=== PATIENT | male | born 1995 | race Caucasian/White ===

== ENCOUNTER 2022-08-17 13:02 | Emergency (ER) | payer MEDICAID, SELFPAY ==
[2022-08-17 13:10] VITALS: BP 138/71; PULSE 107; RESP 18; TEMP 37.5; O2SAT 98; BMI 20.1
[2022-08-17] MEDS: orphenadrine 30 mg/mL Inj 2 mL 60 MG IM (15:10)
[2022-08-17] MEDS: dexamethasone 10 mg/mL INJ IM (15:10)
[2022-08-17 15:15] VITALS: PULSE 74; RESP 20; O2SAT 97
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
== END 2022-08-17 15:17 | disposition home or self-care (01) ==
PROVIDERS: Emergency Provider Nurse Practitioner Family
DX: S39.012A Strain of muscle, fascia and tendon of lower back, initial encounter (principal); X50.0XXA Overexertion from strenuous movement or load, initial encounter
CPT/HCPCS: 96372; 99284; J1100; J2360

== ENCOUNTER 2022-10-21 19:50 | Emergency (ER) | payer MEDICAID, SELFPAY ==
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
[2022-10-21 20:01] VITALS: BP 131/71; PULSE 103; RESP 16; O2SAT 98
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
--- NOTE | 2022-10-21 20:12 | PC.NURSE ---
Pt placed on bedside greeting card editor
[2022-10-21] MEDS: iohexol 350 mg/mL 500 mL Btl (per mL) IV (20:47)
[2022-10-21 20:56] VITALS: BP 123/72; PULSE 98; RESP 16; TEMP 36.7; O2SAT 98
[2022-10-21 21:02] LABS: Basophils # 0.1 10^3/uL (0.0-0.1); Basophils % 0.5 %; Eosinophils # 0.2 10^3/uL (0.0-0.8); Eosinophils % 0.7 %; Hematocrit 38.6 % (42.0-52.0); Hemoglobin 14.1 g/dL (11.7-16.6); Lymphocytes # 2.6 10^3/uL (0.8-4.8); Lymphocytes % 10.9 %; Mean Corpuscular HGB Conc 36.5 g/dL (30.0-36.0); Mean Corpuscular Volume 90.4 fl (80-94); Mean Platelet Volume 9.6 fL (7.4-10.4); Monocytes # 1.2 10^3/uL (0.2-0.9); Monocytes % 4.9 %; Neutrophils % 82.4 %; Nucleated Red Blood Cells % 0 %; Platelet Count 274 10^3/cmm (130-400); Red Blood Count 4.27 10^6/uL (4.1-5.3); Red Cell Distribution Width 11.8 % (12.1-15.1); White Blood Count 23.7 10^3/uL (4.0-10.0)
[2022-10-21 21:14] LABS: INR 1.05 (0.8-1.2)
--- NOTE | 2022-10-21 21:14 | ECG_ITS ---
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 Measurements Intervals [place] Rate: 91 P: 74 GA: 147 QRS: -36 QRSD: 78 T: 66 QT: 337 QTc: 417 Interpretive Statements SINUS RHYTHM LEFT AXIS DEVIATION [QRS AXIS < -30] POSSIBLE RIGHT VENTRICULAR CONDUCTION DELAY [RSR (QR) IN V1/V2] No previous ECG available for comparison Electronically Signed On 10-22-2022 1:35:18 CDT by Taylor Lopes M.D. [id number]
[2022-10-21] MEDS: tetanus-dipt-pertussis 0.5 mL SDV IM (21:17)
--- NOTE | 2022-10-21 21:27 | PC.NURSE ---
Pt hooked up to continuous bedside cardiac monitoring.
[2022-10-21 21:28] LABS: Albumin Level 4.1 g/dL (3.5-5.2); Alkaline Phosphatase 82 U/L (40-130); Blood Urea Nitrogen 14 mg/dL (6-20); Carbon Dioxide 24 mmol/L (22-29); Chloride 101 mmol/L (98-107); Globulin 2.2 g/dL (1.3-4.6); Glomerular Filtration Rate 101.2 mL/min (90-130); Glucose 127 mg/dL (65-115); Osmolality Calculated 284 mOsm/kg (285-295); Sodium 136 mmol/L (136-145); Total Bilirubin 0.3 mg/dL (0.15-1.2); Total Protein 6.3 g/dL (6.6-8.7)
[2022-10-21 21:29] VITALS: BP 121/71; PULSE 115; O2SAT 96
[2022-10-21] MEDS: ampicillin-sulbactam 3 GM in sodium chloride 0.9% (plus) 50 ML IV (21:46)
[2022-10-21 21:51] LABS: Alanine Aminotransferase < 5 U/L (0-41); Aspartate Amino Transferase 5 U/L (0-40)
[2022-10-21 21:55] LABS: Add Urine Microscopic? NO; Charge for UA Resulting for Rev
[2022-10-21 22:03] LABS: Bilirubin Urine Neg (Negative); Blood Urine Neg (Negative); Glucose Urine UA Norm (Normal); Ketones Urine Negative (Negative); Leukocyte Esterase Urine Negative (Negative); Nitrate Urine Negative (Negative); Protein Urine Neg (Negative); Specific Gravity, Urine 1.015 (1.005-1.030); Sulfosalicylic Acid Urine Negative (Negative); Urine Appearance Clear (CLEAR); Urine Color Light yellow (Yellow); Urobilinogen Urine Norm (Negative); pH Urine 8 (5-7)
[2022-10-21 22:06] LABS: Amphetamines Screen Urine Negative (Negative); Barbiturates Screen Urine Negative (Negative); Benzodiazepines Screen Urine Negative (Negative); Cocaine Screen Urine Negative (Negative); Opiate Screen Urine Negative (Negative); PCP Screen Urine Negative (Negative); THC Screen Urine Negative (Negative)
[2022-10-21 22:30] VITALS: BP 105/73; PULSE 93; RESP 16; O2SAT 98
[2022-10-21 23:00] VITALS: BP 120/80; PULSE 100; RESP 15; O2SAT 99
--- NOTE | 2022-10-21 23:05 | PC.NURSE ---
Cleaned wounds on face, pt tolerated well.
[2022-10-21] MEDS: ketorolac 30 mg/mL INJ IVP (23:28)
[2022-10-21 23:45] VITALS: BP 119/72; PULSE 89; RESP 16; O2SAT 98
--- NOTE | 2022-10-26 14:42 | DCPLANNER ---
assistant account manager called patient due to no primary care physician - no answer at this time.
--- NOTE | 2022-10-29 12:58 | DCPLANNER ---
sound effects manager called patient due to no primary care physician - no answer at this time.
== END 2022-10-21 23:53 | disposition home or self-care (01) ==
PROVIDERS: Emergency Provider Emergency Medicine
DX: S02.40DA Maxillary fracture, left side, initial encounter for closed fracture (principal); S02.2XXA Fracture of nasal bones, initial encounter for closed fracture; S01.511A Laceration without foreign body of lip, initial encounter; M26.34 Vertical displacement of fully erupted tooth or teeth; V44.5XXA Car driver injured in collision with heavy transport vehicle or bus in traffic accident, initial encounter; Z23 Encounter for immunization
CPT/HCPCS: 36415; 70450; 70486; 71045; 71260; 72125; 72170; 73562; 74177; 80053; 80306; 81003; 85025; 85610; 86850; 86900; 90471; 90715; 93005; 96365; 96375; 99291; J0295; J1885; Q9967

== ENCOUNTER 2022-10-27 12:32 | Emergency (ER) | payer MEDICAID, SELFPAY ==
[2022-10-27 12:45] VITALS: BP 101/63; PULSE 111; RESP 18; TEMP 36.7; O2SAT 99
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
[2022-10-27 14:33] VITALS: BP 109/69; PULSE 78; O2SAT 98
== END 2022-10-27 14:35 | disposition home or self-care (01) ==
PROVIDERS: Emergency Provider Physician Assistant
DX: S02.2XXA Fracture of nasal bones, initial encounter for closed fracture (principal); S02.401A Maxillary fracture, unspecified side, initial encounter for closed fracture; V89.2XXA Person injured in unspecified motor-vehicle accident, traffic, initial encounter
CPT/HCPCS: 99283

== ENCOUNTER 2022-12-14 12:16 | Outpatient (CLI) | payer MEDICAID, SELFPAY ==
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
== END 2022-12-14 12:17 | disposition home or self-care (01) ==
LOC: RAD 12:25
PROVIDERS: PCP Family Medicine; Visit Provider Family Medicine
DX: M54.2 Cervicalgia (principal); M79.671 Pain in right foot; M54.50 Low back pain, unspecified; V29.49 Motorcycle driver injured in collision with other motor vehicles in traffic accident
CPT/HCPCS: 72040; 72100; 73630

== ENCOUNTER 2024-04-29 16:47 | Emergency (ER) | payer MEDICAID, SELFPAY ==
--- NOTE | 2024-04-29 16:49 | ECG_ITS ---
[facility] 2024[facility]29 Pat Name: Moses Velazquez Department: Room: Gender: Male Glass Maker: : 1995 Requested By: Amarjit Camarillo Order Number: [id number] Cristian MD: Taylor Lopes M.D. Measurements Intervals [place] Rate: 104 P: 68 ND: 127 QRS: 9 QRSD: 76 T: 66 QT: 318 QTc: 420 Interpretive Statements SINUS TACHYCARDIA POSSIBLE RIGHT VENTRICULAR CONDUCTION DELAY [RSR (QR) IN V1/V2] ABNORMAL RHYTHM ECG Compared to ECG 10/21/2022 21:14:52 Sinus rhythm no longer present Left-axis deviation no longer present Electronically Signed On 04-30-2024 00:13:11 CDT by Taylor Lopes M.D. [email or web address]
[2024-04-29 16:53] VITALS: BP 107/70; PULSE 110; RESP 18; TEMP 36.7; O2SAT 97
--- NOTE | 2024-04-29 17:08 | ED.C_ITS ---
HPI - Psych 2 General: Chief Complaint: Psychiatric Symptoms Stated Complaint: sucidal thoughts Time Seen by Provider: 04/29/24 16:49 Source: patient Mode of arrival: ambulatory Limitations: no limitations History of Present Illness: 28-year-old male who states he has been having severe depression especially over the last month he states that he had got a gun a month ago and was going to kill himself but his dad took his gun away states he still been having increased suicidal thoughts with multiple plans he denies any history of admissions in the past he is not on any medications at this time. Denies any worse improved factors. Related Data Previous Rx's Medication Instructions Recorded hydrocodone 5 mg-acetaminophen 325 1 - 2 tab PO Q4H PRN pain #20 tabs 10/27/22 mg tablet ibuprofen 600 mg tablet 600 mg PO TID PRN pain #30 tabs 10/27/22 Allergies Allergy/AdvReac Type Severity Reaction Status Date / Time No Known Allergies Allergy Verified 10/27/22 12:48 Physical Exam 2 Const: COMMON NORMALS: no acute distress, patient oriented x3 and healthy appearing HENMT: COMMON NORMALS: normocephalic and atraumatic HEAD & SCALP: n ormocephalic and atraumatic Neck/C-Spine: COMMON NORMALS: full ROM and supple Chest: COMMONS NORMALS: normal inspection of the chest Cardio: COMMON NORMALS: regular rate RATE: regular rate Extremity: COMMON NORMALS: normal to inspection and full ROM Neuro: COMMON NORMALS: patient oriented x3, moves all extremities and no focal motor deficits Psych: COMMON NORMALS: mental status grossly normal and cooperative THOUGHT CONTENT: Yes Suicidality present Skin: COMMON NORMALS: no rashes or lesions noted and no wounds GENERAL SKIN EXAM: no rashes or lesions noted Course 2 Vital Signs: Vital signs: Vital Signs Temperature 98.1 F 04/29/24 16:53 Pulse Rate 70 04/30/24 08:00 Respiratory Rate 14 04/30/24 02:12 Blood Pressure 120/72 04/30/24 08:00 Pulse Oximetry 98 04/30/24 08:00 Oxygen Delivery Me thod Room Air 04/30/24 07:54 MDM - Psych Medical Decision Making Patient presents here with suicidal ideation patient is medically cleared is excepted at [facility] will transfer there for bed availability Medical Records I reviewed the patient's medical records. Lab Data I reviewed the patient's lab results. 04/29/24 17:15 04/29/24 17:15 Laboratory Results WBC 8.63 10^3/uL (3.29-11.43) 04/29/24 17:15 RBC 5.03 10^6/uL (3.85-5.65) 04/29/24 17:15 Hgb 16.00 g/dL (11.27-16.99) 04/29/24 17:15 Hct 43.8 % (37-53) 04/29/24 17:15 MCV 87.1 fl (82-101) 04/29/24 17:15 MCH 31.8 pg (27-33) 04/29/24 17:15 MCHC 36.5 g/dL (30-55) 04/29/24 17:15 RDW 11.4 % (12.1-15.1) L 04/29/24 17:15 Plt Count 269 10^3/cmm (157-399) 04/29/24 17:15 MPV 9.9 fL (7.4-10.4) 04/29/24 17:15 Neut % (Auto) 74.1 % 04/29/24 17:15 Lymph % (Auto) 19.7 % 04/29/24 17:15 Marshall % (Auto) 4.5 % 04/29/24 17:15 Eos % (Auto) 0.6 % 04/29/24 17:15 Baso % (Auto) 0.9 % 04/29/24 17:15 Neut # (Auto) 6.39 10^3/uL (1.8-7.7) 04/29/24 17:15 Lymph # (Auto) 1.7 10^3/uL (0.8-4.8) 04/29/24 17:15 Marshall # (Auto) 0.4 10^3/uL (0.2-0.9) 04/29/24 17:15 Eos # (Auto) 0.1 10^3/uL (0.0-0.8) 04/29/24 17:15 Baso # (Auto) 0.1 10^3/uL (0.0-0.1) 04/29/24 17:15 Nucleated RBC % (auto) 0 % 04/29/24 17:15 Nucleated RBCs # 0.0 /100WBC 04/29/24 17:15 Sodium 134 mmol/L (136-145) L 04/29/24 17:15 Potassium 4.0 mmol/L (3.5-5.1) 04/29/24 17:15 Chloride 98 mmol/L (98-107) 04/29/24 17:15 Carbon Dioxide 26 mmol/L (22-29) 04/29/24 17:15 Anion Gap 14.0 (5-19) 04/29/24 17:15 BUN 10 mg/dL (6-20) 04/29/24 17:15 Creatinine 1.0 mg/dL (0.7-1.2) 04/29/24 17:15 GFR Calculation 88.3 mL/min (90-130) L 04/29/24 17:15 Glucose 94 mg/dL (65-115) 04/29/24 17:15 Calculated Osmolality 277 mOsm/kg (285-295) L 04/29/24 17:15 Calcium 9.2 mg/dL (8.5-10.5) 04/29/24 17:15 Total Bilirubin 0.6 mg/dL (0.15-1.2) 04/29/24 17:15 AST 15 U/L (0-40) 04/29/24 17:15 ALT 14 U/L (0-41) 04/29/24 17:15 Alkaline Phosphatase 66 U/L (40-130) 04/29/24 17:15 Total Protein 7.4 g/dL (6.6-8.7) 04/29/24 17:15 Albumin 4.7 g/dL (3.5-5.2) 04/29/24 17:15 Globulin 2.7 g/dL (1.3-4.6) 04/29/24 17:15 TSH 0.31 uIU/mL (0.27-4.20) 04/29/24 17:15 Salicylates < 0.3 mg/dL (3-10) L 04/29/24 17:15 Urine Opiates Screen Negative ng/mL (Negative) 04/29/24 17:53 Acetaminophen < 5.0 ug/mL (10-30) L 04/29/24 17:15 Ur Barbiturates Screen Negative ng/mL (Negative) 04/29/24 17:53 Ur Phencyclidine Scrn Negative ng/mL (Negative) 04/29/24 17:53 Ur Amphetamines Screen Negative ng/mL (Negative) 04/29/24 17:53 U Benzodiazepines Scrn Negative ng/mL (Negative) 04/29/24 17:53 Urine Cocaine Screen Negative ng/mL (Negative) 04/29/24 17:53 U Marijuana (THC) Screen Negative ng/mL (Negative) 04/29/24 17:53 Ethyl Alcohol < 10 mg/dL (0-10) 04/29/24 17:15 Coronavirus (PCR) Negative (Negative) 04/29/24 17:25 Influenza A (PCR) Negative (Negative) 04/29/24 17:25 Influenza Type B (PCR) Negative (Negative) 04/29/24 17:25 RSV (PCR) Negative (Negative) 04/29/24 17:25 No radiology studies performed this visit Discharge Plan Discharge Patient Disposition: Xfer Psychiatric Hosp Clinical Impression: Suicidal ideation Condition: Stable Referrals: Art Saavedra MD [Primary Care Provider] - Coding Level of Care Code ED Yarn Polishing Machine Operator for Odin Mendoza
[2024-04-29 17:21] LABS: Basophils # 0.1 10^3/uL (0.0-0.1); Basophils % 0.9 %; Eosinophils # 0.1 10^3/uL (0.0-0.8); Eosinophils % 0.6 %; Hematocrit 43.8 % (37-53); Lymphocytes # 1.7 10^3/uL (0.8-4.8); Lymphocytes % 19.7 %; Mean Corpuscular HGB Conc 36.5 g/dL (30-55); Mean Corpuscular Hemoglobin 31.8 pg (27-33); Mean Corpuscular Volume 87.1 fl (82-101); Mean Platelet Volume 9.9 fL (7.4-10.4); Monocytes # 0.4 10^3/uL (0.2-0.9); Monocytes % 4.5 %; Neutrophils # 6.39 10^3/uL (1.8-7.7); Neutrophils % 74.1 %; Nucleated Red Blood Cells % 0 %; Platelet Count 269 10^3/cmm (157-399); Red Blood Count 5.03 10^6/uL (3.85-5.65); Red Cell Distribution Width 11.4 % (12.1-15.1); White Blood Count 8.63 10^3/uL (3.29-11.43)
[2024-04-29] MEDS: LORazepam 2 mg Tablet PO (17:28)
[2024-04-29 17:55] LABS: Alanine Aminotransferase 14 U/L (0-41); Albumin Level 4.7 g/dL (3.5-5.2); Alkaline Phosphatase 66 U/L (40-130); Aspartate Amino Transferase 15 U/L (0-40); Blood Urea Nitrogen 10 mg/dL (6-20); Calcium 9.2 mg/dL (8.5-10.5); Carbon Dioxide 26 mmol/L (22-29); Chloride 98 mmol/L (98-107); Creatinine Clr Calc Pharmacy 76.2231; Globulin 2.7 g/dL (1.3-4.6); Glomerular Filtration Rate 88.3 mL/min (90-130); Glucose 94 mg/dL (65-115); Osmolality Calculated 277 mOsm/kg (285-295); Sodium 134 mmol/L (136-145); Thyroid Stimulating Hormone 0.31 uIU/mL (0.27-4.20); Total Bilirubin 0.6 mg/dL (0.15-1.2); Total Protein 7.4 g/dL (6.6-8.7)
[2024-04-29 17:56] LABS: Acetaminophen < 5.0 ug/mL (10-30); Alcohol Level < 10 mg/dL (0-10); Salicylate < 0.3 mg/dL (3-10)
[2024-04-29 18:07] LABS: Covid PCR NEGATIVE (Negative); Influenza A NEGATIVE (Negative); Influenza B NEGATIVE (Negative); Respiratory Syncytial Virus Ce NEGATIVE (Negative)
[2024-04-29 18:28] LABS: Amphetamines Screen Urine Negative (Negative); Barbiturates Screen Urine Negative (Negative); Benzodiazepines Screen Urine Negative (Negative); Cocaine Screen Urine Negative (Negative); Opiate Screen Urine Negative (Negative); PCP Screen Urine Negative (Negative); THC Screen Urine Negative (Negative)
--- NOTE | 2024-04-29 19:17 | PC.NURSE ---
96 hr rights reviewed with patient @[phone] with assistance of [facility] senior information security architect Atul. All education reviewed. No verbalized questions at this time Patient copy left @bedside with patient. Drink and pudding provided to patient.
[2024-04-29 22:08] VITALS: BP 116/67; PULSE 75; RESP 16; O2SAT 98
[2024-04-30 02:12] VITALS: BP 105/68; PULSE 87; RESP 14; O2SAT 98
[2024-04-30 07:54] VITALS: BP 120/72; PULSE 70; O2SAT 98
[2024-04-30 08:00] VITALS: BP 120/72; PULSE 70; O2SAT 98
== END 2024-04-30 08:00 ==
PROVIDERS: Emergency Provider Emergency Medicine; PCP Family Medicine
DX: R45.851 Suicidal ideations (principal); F32.A Depression, unspecified
CPT/HCPCS: 0241U; 36415; 80053; 80306; 80307; 84443; 85025; 93005; 99285

== ENCOUNTER 2024-11-06 23:16 | Emergency (ER) | payer MEDICAID, SELFPAY ==
[2024-11-06 23:19] VITALS: BP 132/78; PULSE 82; RESP 14; TEMP 36.8; O2SAT 96
--- NOTE | 2024-11-07 03:29 | W.ED.BACK ---
HPI - Back Pain/Injury General: Chief Complaint: Back Pain/Injury Stated Complaint: low back pain cause fall Time Seen by Provider: 11/07/24 03:23 History of Present Illness: Patient presents the emergency department with complaint of left lower back pain. No known injury. No trauma. Denies any saddle paresthesias. Denies any radicular pain. Denies any bowel or bladder changes. Denies any fever. Denies any history of IV drug use. Related Data Previous Rx's ?Medication ?Instructions ?Recorded hydrocodone 5 mg-acetaminophen 325 1 - 2 tab PO Q4H PRN pain #20 tabs 10/27/22 mg tablet ibuprofen 600 mg tablet 600 mg PO TID PRN pain #30 tabs 10/27/22 hydrocodone 5 mg-acetaminophen 325 1 tab PO Q6H #20 tabs 11/07/24 mg tablet prednisone 20 mg tablet 20 mg PO BID 5 days #10 tabs 11/07/24 Allergies Allergy/AdvReac Type Severity Reaction Status Date / Time No Known Allergies Allergy Verified 11/06/24 23:23 [facility] PFSH: Medical History (Updated 11/07/24 @ 03:30 by Eliud Michael MD) Psychiatric care Physical Exam Neck/C-Spine: COMMON NORMALS: no JVD Resp: COMMON NORMALS: normal respiratory effort, No retractions, No use of accessory muscles, clear to auscultation bilaterally and percussion normal AUSCULTATION: clear to auscultation bilaterally PERCUSSION: percussion normal Cardio: COMMON NORMALS: no JVD, regular rate, regular rhythm, S1 normal heart sound present, S2 normal heart sound present, No gallops present (Cardio), No clicks present (Cardio), No murmurs present (Cardio), No rub (Cardio) and Peripheral pulses 2+ throughout RATE: regular rate RHYTHM: regular rhythm HEART SOUNDS: S1 normal heart sound present and S2 normal heart sound present PERIPHERAL PULSES: Peripheral pulses 2+ throughout Back/Pelvis: SACROILIAC JOINTS: Yes SI joint(s) abnormal SI joint details: tender to palpation OTHER: Patient with pinpoint tenderness to the left SI joint. No pain over the midline of the spine. No redness or swelling or skin changes. Course Vital Signs: Vital signs: Vital Signs Temperature 98.2 F 11/06/24 23:19 Pulse Rate 82 11/06/24 23:19 Respiratory Rate 14 11/06/24 23:19 Blood Pressure 132/78 11/06/24 23:19 Pulse Oximetry 96 11/06/24 23:19 Oxygen Delivery Me thod Room Air 11/06/24 23:19 MDM - Back Pain/Injury Medical Decision Making Patient with pinpoint tenderness to the left SI joint. Pain with movement and palpation. Patient with no indication of cauda equina. Has no radicular pain. Has no saddle paresthesias has no bowel or bladder changes. Has no midline tenderness. Patient has no fever. No risk factors or concerns at this time for infection such as epidural abscess. Patient's pain seems consistent with SI joint dysfunction. Patient given [place] and Toradol and prednisone will discharge home with [place] and prednisone. No radiology studies performed this visit Discharge Plan Discharge Patient Disposition: Home Clinical Impression: SI (sacroiliac) joint dysfunction Condition: Stable Prescriptions: New hydrocodone-acetaminophen 5-325 mg tablet 1 tab PO Q6H Qty: 20 0RF prednisone 20 mg tablet 20 mg PO BID 5 Days Qty: 10 0RF No Action hydrocodone-acetaminophen 5-325 mg tablet 1 - 2 tab PO Q4H PRN (Reason: pain) Qty: 20 0RF ibuprofen 600 mg tablet 600 mg PO TID PRN (Reason: pain) Qty: 30 0RF Discharge Orders: Discharge ED (Routine); Ordered 11/07/24 Ordered By: Eliud Michael Referrals: Art Saavedra MD [Primary Care Provider, [facility]] Discharge Diet: Advance as tolerated Discharge Activity: Increase activity as tolerated Patient Instructions: Opioid Safety, Pain Management Print Language: [place] Coding Level of Care Code ED Lead Systems Analyst for Odin Mendoza
[2024-11-07] MEDS: HYDROcodone-acetaminophen 5-325 mg Tablet 1 TAB PO (03:38)
[2024-11-07] MEDS: predniSONE 20 mg Tablet 40 MG PO (03:38)
[2024-11-07] MEDS: ketorolac 30 mg/mL INJ IM (03:40)
[2024-11-07 03:44] VITALS: PULSE 82; O2SAT 98
[2024-11-07 03:46] VITALS: BP 132/78; PULSE 82; O2SAT 96
== END 2024-11-07 03:53 | disposition home or self-care (01) ==
PROVIDERS: Emergency Provider Emergency Medicine; PCP Family Medicine
DX: M46.1 Sacroiliitis, not elsewhere classified (principal)
CPT/HCPCS: 96372; 99284; J1885; J7512; J9999